=== PATIENT | female | born 1980 | race Two or more races ===

== ENCOUNTER → 2019-11-05 | Outpatient (CLI) | payer OTHER ==
[2019-11-05 08:38] LABS: CHOLESTEROL 169.37 mg/dL (0-200); TRIGLYCERIDES 96 mg/dL (<150)
[2019-11-05 08:49] LABS: DIRECT LDL 101 mg/dL (<100)
== END ==
LOC: OD 07:33
PROVIDERS: ATTEND Specialist
DX: Z13.1 Encounter for screening for diabetes mellitus (principal); Z13.220 Encounter for screening for lipoid disorders
CPT/HCPCS: 36415; 80061; 83036

== ENCOUNTER 2019-12-09 10:43 | Emergency (ER) | payer OTHER ==
--- NOTE | 2019-12-09 11:32 | ER Document Report ---
ED Hand/Wrist Injury - General Chief Complaint: Hand Swelling Stated Complaint: HAND PAIN/SWELLING Time Seen by Provider: 12/09/19 11:27 Primary Care Provider: MARISELA MANZANO MD [Primary Care Provider] - Follow up as needed Notes: CHIEF COMPLAINT: Left index finger swelling for 2 weeks HPI: 39-year-old female presenting to the emergency department for evaluation of swelling and discomfort to the left index finger over the last 2 weeks. Hurts to flex and extend. No definite trauma. No fever. [id number]. Has not seen a primary provider for evaluation of symptoms ROS: See HPI - all other systems were reviewed and are otherwise negative Constitutional: no fever Integumentary: no rash Allergy: no hives Musculoskeletal: + extremity pain or swelling Neurological: no numbness/tingling, no weakness MEDICATIONS: I agree with the patient medications as charted by the RN. ALLERGIES: I agree with the allergies as charted by the RN. PAST MEDICAL HISTORY/PAST SURGICAL HISTORY: Reviewed and agree as charted by RN. SOCIAL HISTORY: Reviewed and agree as charted by RN. FAMILY HISTORY: No significant familial comorbid conditions directly related to patient complaint EXAM: Reviewed vital signs as charted by RN. CONSTITUTIONAL: Alert and oriented and responds appropriately to questions. Well-appearing; well-nourished HEAD: Normocephalic; atraumatic EYES: Conjunctivae clear, sclerae non-icteric ENT: normal nose; no rhinorrhea; moist mucous membranes NECK: Supple without meningismus CARD: symmetric distal pulses RESP: Normal chest excursion without splinting or tachypnea ABD/GI: non-distended BACK: The back appears normal EXT: Normal ROM in all joints; no overlying erythema to the left index finger. There is very slight soft tissue swelling over the proximal and medial pathology of the left index finger on the dorsal aspect. Patient is able to fully flex and extend the finger at the MCP, PIP and DIP joint space region. Sensation is intact in the distal fingertip to touch with capillary refill less than 3 seconds SKIN: Normal color for age and race; warm; dry; good turgor; no acute lesions noted NEURO: Moves all extremities equally; Motor and sensory function intact PSYCH: The patient's mood and manner are appropriate. Grooming and personal hygiene are appropriate. MDM: 39-year-old female with swelling over the dorsal aspect of the left index finger for 2 weeks. May be a simple tendinitis, sprain. She denies a specific trauma. Will obtain an x-ray to evaluate bone structure TRAVEL OUTSIDE OF THE [place] IN LAST 30 DAYS: No - Related Data Allergies/Adverse Reactions: lactose Allergy (Verified 12/09/19 11:26) Penicillins Allergy (Verified 12/09/19 11:26) Home Medications: Singulair. Claritin. Advair. Albuterol Past Medical History - Social History Smoking Status: Former Smoker Frequency of alcohol use: None Drug Abuse: None Family History: Reviewed & Not Pertinent Patient has suicidal ideation: No Patient has homicidal ideation: No Physical Exam - Vital signs Vitals: Temp Pulse Resp BP Pulse Ox 98.2 F 82 18 144/87 H 96 12/09/19 10:59 12/09/19 10:59 12/09/19 10:59 12/09/19 10:59 12/09/19 10:59 Course - Re-evaluation Re-evalutation: 12/09/19 12:08 X-ray on my review does not reveal evidence of a fracture, will place in a splint for comfort, follow-up orthopedics - Vital Signs Vital signs: Temp Pulse Resp BP Pulse Ox 98.2 F 82 18 144/87 H 96 12/09/19 10:59 12/09/19 10:59 12/09/19 10:59 12/09/19 10:59 12/09/19 10:59 Discharge - Discharge Clinical Impression: Tendinitis of finger of left hand Condition: Stable Disposition: HOME, SELF-CARE Instructions: Tendonitis ([facility]) Additional Instructions: Finger splint for comfort for the next 3 to 5 days. Ice the finger twice daily to help with swelling and pain. X-ray did not show evidence of a fracture. Follow-up closely with orthopedics for further evaluation and treatment call for appointment. Anti-inflammatories as prescribed Prescriptions: Naproxen 500 mg PO BID PRN #14 tablet PRN Reason: Referrals: MARISELA MANZANO MD [Primary Care Provider] - Follow up as needed CADY HUYNH MD [ACTIVE STAFF] - Follow up as needed
--- NOTE | 2019-12-09 12:14 | RADIOLOGY REPORT (SQ) ---
EXAM DESCRIPTION: FINGER LEFT COMPLETED DATE/TIME: 12/09/2019 12:05 pm REASON FOR STUDY: left index swelling COMPARISON: None. NUMBER OF VIEWS: Three views. TECHNIQUE: AP, lateral, and oblique images acquired of the left second finger. LIMITATIONS: None. FINDINGS: MINERALIZATION: Normal. BONES: No acute fracture or dislocation. No worrisome bone lesions. No significant osteophytes. JOINTS: No erosions. No roberta-articular osteopenia. No chondrocalcinosis. SOFT TISSUES: No swelling. No calcifications. OTHER: No other significant finding. IMPRESSION: NEGATIVE RADIOGRAPHS OF THE LEFT SECOND FINGER. TECHNICAL DOCUMENTATION: JOB ID: [id number] 2010 [employer]- All Rights Reserved Reading location - IP/workstation name: [email or web address]
[2019-12-09 12:29] VITALS: BP 135/88
== END 2019-12-09 12:29 | disposition home or self-care (01) ==
LOC: ER 10:43
DX: M77.9 Enthesopathy, unspecified (principal); M79.89 Other specified soft tissue disorders; Z88.0 Allergy status to penicillin
CPT/HCPCS: 99283

== ENCOUNTER → 2019-12-19 | Outpatient (CLI) | payer OTHER ==
[2019-12-19 10:55] LABS: C-REACTIVE PROTEIN 18.6 mg/L (<10.0)
[2019-12-22 15:42] LABS: LYME DISEASE IGM AB <0.80 index (0.00-0.79)
== END ==
LOC: OD 09:23
PROVIDERS: ATTEND Orthopaedic Surgery
DX: M79.645 Pain in left finger(s) (principal); R22.30 Localized swelling, mass and lump, unspecified upper limb
CPT/HCPCS: 36415; 84550; 85652; 86038; 86140; 86200; 86431; 86617; 86618